=== PATIENT | male | born 1975 | race Caucasian/White ===

== ENCOUNTER 2017-12-05 16:23 | Emergency (ER) | payer OTHER ==
[2017-12-05 16:56] LABS: BASOPHILS % (AUTO) 0.5 %; EOSINOPHILS # (AUTO) 0.1 10^3/uL (0.0-0.7); EOSINOPHILS % (AUTO) 1.7 %; HGB - HEMOGLOBIN 16.1 g/dL (14.0-18.0); LYMPHOCYTES % (AUTO) 26.4 %; MEAN CORPUSCULAR HEMOGLOBIN 30.9 pg (27.0-31.0); MEAN CORPUSCULAR HGB CONC 34.7 g/dL (32.0-36.0); MEAN CORPUSCULAR VOLUME 89.1 fL (80.0-94.0); MEAN PLATELET VOLUME 7.9 fL (7.4-11.4); MONOCYTES # (AUTO) 0.7 10^3/uL (0.0-1.0); MONOCYTES % (AUTO) 9.2 %; NEUTROPHILS # (AUTO) 4.7 10^3/uL (1.5-6.6); NEUTROPHILS % (AUTO) 62.2 %; PLT - PLATELET COUNT 260 10^3/uL (130-450); RED BLOOD COUNT 5.21 10^6/uL (4.70-6.10); RED CELL DISTRIBUTION WIDTH 12.7 % (12.0-15.0); WHITE BLOOD COUNT 7.6 x10^3/uL (4.8-10.8)
--- NOTE | 2017-12-05 17:10 | XRAY Report ---
EXAM: CHEST RADIOGRAPHY EXAM DATE: 12/05/2017 04:42 PM. CLINICAL HISTORY: Chest pain. COMPARISON: None. TECHNIQUE: 2 views. FINDINGS: Lungs/Pleura: No focal opacities evident. No pleural effusion. No pneumothorax. Normal volumes. Mediastinum: Heart and mediastinal contours are unremarkable. Other: None. IMPRESSION: No acute intrathoracic plain film abnormality. [facility] Referring Provider Line: [phone] SITE ID: [id number]
[2017-12-05 17:11] LABS: ALBUMIN 4.5 g/dL (3.2-5.5); ALBUMIN/GLOBULIN RATIO 1.5 (1.0-2.2); BILIRUBIN,TOTAL 1.2 mg/dL (0.2-1.0); CALCIUM 9.3 mg/dL (8.5-10.3); CREATININE 0.8 mg/dL (0.6-1.2); TOTAL PROTEIN 7.5 g/dL (6.7-8.2)
--- NOTE | 2017-12-05 17:23 | ED Physician Documentation ---
History of Present Illness - Stated complaint Stated Complaint: CP - Chief complaint Chief Complaint: Cardiac - History obtained from History obtained from: Patient (pt is here with left sided chest pain that has been going on there for the since saturday. he does not know what he was doing at the time of the onset, no SOB, does hurt with palpation and movement and deep breath. no rash.) Review of Systems Constitutional: denies: Fever, Chills Cardiac: reports: Chest pain / pressure. denies: Palpitations Respiratory: denies: Dyspnea, Cough, Hemoptysis, Wheezing GI: denies: Abdominal Pain, Nausea, Vomiting, Diarrhea : denies: Dysuria Skin: denies: Rash, Lesions Musculoskeletal: denies: Back pain, Extremity pain PD PAST MEDICAL HISTORY - Past Medical History Past Medical History: Yes Endocrine/Autoimmune: Type 2 diabetes - Past Surgical History Past Surgical History: No - Present Medications Home Medications: Ambulatory Orders Medication Instructions Recorded Confirmed Aspirin [Aspirin EC] 1 tab PO DAILY 12/05/17 12/05/17 Atorvastatin [Lipitor] 2 tab PO BID 12/05/17 12/05/17 Lisinopril 1 tab PO DAILY 12/05/17 12/05/17 metFORMIN [Glucophage] 2 tab PO BID 12/05/17 12/05/17 - Allergies Allergies/Adverse Reactions: Allergies Allergy/AdvReac Type Severity Reaction Status Date / Time Penicillins Allergy Unknown Verified 12/05/17 16:36 - Social History Does the pt smoke?: No Smoking Status: Never smoker Does the pt drink ETOH?: No Does the pt have substance abuse?: No - Immunizations Immunizations are current?: Yes PD ED PE NORMAL - General General: Alert and oriented X 3, No acute distress, Well developed/nourished - Cardiac Cardiac: RRR, No murmur, No gallop - Respiratory Respiratory: No respiratory distress, Clear bilaterally - Abdomen Abdomen: Soft, Non tender - Derm Derm: Normal color, Warm and dry, No rash - Extremities Extremities: No deformity - Neuro Neuro: Alert and oriented X 3, toe stapler 2-12 intact, No motor deficit, Normal speech Eye Opening: Spontaneous Motor: Obeys Commands Verbal: Oriented GCS Score: 15 - Psych Psych: Normal mood, Normal affect Results - Vitals Vitals: Vital Signs - 24 hr 12/05/17 16:31 Temperature 37.0 C Heart Rate 84 Respiratory 18 Rate Blood Pressure 110/66 O2 Saturation 99 Oxygen O2 Source Room air - EKG (time done) 1633 Rate: Rate (enter#) Rhythm: NSR Ferdinand: Normal Intervals: Normal SC, QRS normal QRS: Normal Ischemia: Normal ST segments - Labs Labs: Laboratory Tests 12/05/17 12/05/17 12/05/17 16:51 16:51 16:51 WBC 7.6 RBC 5.21 Hgb 16.1 Hct 46.5 MCV 89.1 MCH 30.9 MCHC 34.7 RDW 12.7 Plt Count 260 MPV 7.9 Neut # 4.7 Lymph # 2.0 Hayes # 0.7 Eos # 0.1 Baso # 0.0 Absolute Nucleated RBC 0.00 Nucleated RBC % 0.0 Sodium 136 Potassium 4.0 Chloride 101 Carbon Dioxide 24 Anion Gap 11.0 BUN 18 Creatinine 0.8 Estimated GFR (MDRD) 105 Glucose 100 Calcium 9.3 Total Bilirubin 1.2 H AST 29 ALT 36 Alkaline Phosphatase 91 Troponin I < 0.04 Total Protein 7.5 Albumin 4.5 Globulin 3.0 Albumin/Globulin Ratio 1.5 Lipase 23 - Rads (name of study) CXR Radiology: Final report received (No acute abnormalities. ), EMP read contemporaneously PD MEDICAL DECISION MAKING - ED course Complexity details: reviewed results, considered differential, d/w patient ED course: pt with pain with palpation to a pinpoint area of the left chest. Normal ECG and neg trop 48 hours after the onset of the pain. suspect MSK. discussed with patient. gave return precautions. Departure - Departure Disposition: 01 Home, Self Care Clinical Impression: Costochondritis Condition: Good Instructions: ED Chest Pain NonCardiac Follow-Up: Zana Restrepo DO [Primary Care Provider] - Comments: You can take wither Motrin or naprosyn for the pain. return to the ER for any new or worsening symptoms.
[2017-12-05 18:01] VITALS: BP 110/60
== END 2017-12-05 18:02 | disposition home or self-care (01) ==
LOC: ED 16:23
DX: M94.0 Chondrocostal junction syndrome [Tietze] (principal); E11.9 Type 2 diabetes mellitus without complications; Z79.84 Long term (current) use of oral hypoglycemic drugs; Z79.82 Long term (current) use of aspirin
CPT/HCPCS: 36415; 71046; 80053; 83690; 84484; 85025; 93005; 99283; 99284

== ENCOUNTER 2018-01-27 11:00 | Outpatient (CLI) | payer OTHER | END 2018-01-27 11:01 | disposition home or self-care (01) | LOC: SC 11:00 | PROVIDERS: ATTEND Internal Medicine Pulmonary Disease | DX: G47.33 Obstructive sleep apnea (adult) (pediatric) (principal) | CPT/HCPCS: 99203; 99212 ==

== ENCOUNTER 2018-02-20 10:38 | Emergency (ER) | payer OTHER ==
--- NOTE | 2018-02-20 12:01 | ED Physician Documentation ---
PD HPI MALE - Stated complaint Stated Complaint: MALE - Chief complaint Chief Complaint: General - History obtained from History obtained from: Patient - History of Present Illness Timing - onset: Yesterday Timing - duration: Days (2) Timing - details: Gradual onset, Still present Associated symptoms: Scrotal swelling (area of swelling tenderness and redness better today) Similar symptoms before: Has not had sx before Recently seen: Not recently seen - Additional information Additional information: 42-year-old male describes what felt like an ingrown hair on his scrotum yesterday and this was markedly more swollen yesterday has gone down and swelling today but still has pain and he is here for evaluation. Review of Systems Constitutional: denies: Fever, Myalgias Ears: denies: Ear pain Nose: denies: Congestion Respiratory: denies: Cough GI: denies: Vomiting : reports: Other (scrotal pain/swelling) Skin: denies: Rash, Laceration (s) PD PAST MEDICAL HISTORY - Past Medical History Past Medical History: Yes Cardiovascular: Hypertension, High cholesterol Endocrine/Autoimmune: Type 2 diabetes - Past Surgical History Past Surgical History: No - Present Medications Home Medications: Ambulatory Orders Medication Instructions Recorded Confirmed Aspirin [Aspirin EC] 1 tab PO DAILY 12/05/17 12/05/17 Atorvastatin [Lipitor] 2 tab PO BID 12/05/17 12/05/17 Lisinopril 1 tab PO DAILY 12/05/17 12/05/17 metFORMIN [Glucophage] 2 tab PO BID 12/05/17 12/05/17 Sulfamethoxazole/Trimethoprim 1 each PO BID #14 tablet 02/20/18 [Sulfamethoxazole-Tmp Ds Tablet] - Allergies Allergies/Adverse Reactions: Allergies Allergy/AdvReac Type Severity Reaction Status Date / Time Penicillins Allergy Unknown Verified 12/05/17 16:36 - Social History Does the pt smoke?: No Smoking Status: Never smoker Does the pt drink ETOH?: No Does the pt have substance abuse?: No - Immunizations Immunizations are current?: Yes - POLST Patient has POLST: No PD ED PE NORMAL - Vitals Vital signs reviewed: Yes (tachy and hyperensive) - General General: Alert and oriented X 3, No acute distress, Well developed/nourished - HEENT HEENT: Atraumatic, PERRL - Respiratory Respiratory: No respiratory distress - Male Male : Other (There is a .5cm area of erythema and tenderness on the anterior scrotum on the right side. There is no fluctuance and no drainage. ) - Derm Derm: Normal color, Warm and dry - Extremities Extremities: No deformity, No edema - Neuro Neuro: Alert and oriented X 3, No motor deficit, No sensory deficit, Normal speech Eye Opening: Spontaneous Motor: Obeys Commands Verbal: Oriented GCS Score: 15 - Psych Psych: Normal mood, Normal affect Results - Vitals Vitals: Vital Signs - 24 hr 02/20/18 02/20/18 10:43 12:10 Temperature 36.6 C 36.7 C Heart Rate 107 H 97 Respiratory 16 18 Rate Blood Pressure 136/81 H 116/74 O2 Saturation 98 98 Oxygen O2 Source Room air PD MEDICAL DECISION MAKING - ED course Complexity details: considered differential, d/w patient ED course: 42 y/o male with a small area of erythema to the scrotum that appears to have drained by history. He is placed onto septra and instructed to use a warm compress and return for increasing swelling, pain and mass. Departure - Departure Disposition: 01 Home, Self Care Clinical Impression: Abscess Condition: Stable Instructions: ED Staph Infec Abx Tx Only Follow-Up: Zana Restrepo DO [Primary Care Provider] - Prescriptions: Sulfamethoxazole/Trimethoprim [Sulfamethoxazole-Tmp Ds Tablet] 1 each PO BID # 14 tablet Discharge Date/Time: 02/20/18 12:10
[2018-02-20 12:13] VITALS: BP 116/74
== END 2018-02-20 12:10 | disposition home or self-care (01) ==
LOC: ED 10:38
DX: N49.2 Inflammatory disorders of scrotum (principal); I10 Essential (primary) hypertension; E11.9 Type 2 diabetes mellitus without complications; E78.00 Pure hypercholesterolemia, unspecified; Z79.84 Long term (current) use of oral hypoglycemic drugs
CPT/HCPCS: 99283